=== PATIENT | female | born 1990 | race Two or more races ===

== ENCOUNTER → 2018-04-28 | Outpatient (CLI) | payer SELFPAY ==
--- NOTE | 2018-04-28 13:27 | RADIOLOGY REPORT (SQ) ---
EXAM DESCRIPTION: U/S [id number] TRNABD 1GES W/ODOP COMPLETED DATE/TIME: 04/28/2018 1:17 pm REASON FOR STUDY: ENCOUNTER FOR SUPERVISION OF OTHER NORMAL PREGANCY, FIRST TRIMESTER Z34.01 ENCNT R FOR SUPRVSN OF NORMAL FIRST PREG, FIRST TRIMES COMPARISON: None. TECHNIQUE: Transabdominal static and realtime grayscale images acquired of the pelvis. Additional se lected spectral and color Doppler images recorded. All images stored on PACs. [facility]: Not available. CLINICAL DATES: LMP 02/25/2018. 8 weeks 6 days. LIMITATIONS: None. FINDINGS: FETUS: Single Living intrauterine . ULTRASOUND EGA: 8 weeks 3 days. ULTRASOUND BEV: 12/05/2018 EFW: Not applicable less than 20 weeks. CRL: 1.9 cm. FHR: 173 beats per minute. SURVEY: Too early to assess. AMNIOTIC FLUID: Adequate amount. PLACENTA: Not yet developed due to early gestation. SUBCHORIONIC BLEED: No SIZE OF BLEED: Not applicable. UTERUS: No masses. No anomalies. CERVICAL LENGTH: 2.1 cm. Closed. RIGHT ADNEXA: Normal ovary with normal vascular flow. 2.1 x 2 x 1.9 cm. No adnexal free fluid. No adnexal masses. LEFT ADNEXA: Normal ovary with normal vascular flow. 2.1 x 1.3 x 1.3 cm. No adnexal free fluid. No adnexal masses. FREE FLUID: None. OTHER: No other significant finding. IMPRESSION: LIVING INTRAUTERINE . EGA 8 weeks 3 days. Trimester of : First - 0 to 13 weeks. TECHNICAL DOCUMENTATION: JOB ID: [id number]- All Rights Reserved rev Reading location - IP/workstation name: [email or web address]
== END ==
LOC: RAD 12:54
PROVIDERS: ATTEND Nurse Practitioner
DX: Z34.01 Encounter for supervision of normal first pregnancy, first trimester (principal)
CPT/HCPCS: 76801

== ENCOUNTER 2018-06-03 01:06 | Emergency (ER) | payer SELFPAY ==
[2018-06-03 01:28] VITALS: BP 112/61
== END 2018-06-03 02:06 | disposition left against medical advice (07) ==
LOC: ER 01:06
DX: Z53.21 Procedure and treatment not carried out due to patient leaving prior to being seen by health care provider (principal)

== ENCOUNTER → 2018-07-14 | Outpatient (CLI) | payer SELFPAY ==
--- NOTE | 2018-07-14 14:50 | RADIOLOGY REPORT (SQ) ---
EXAM DESCRIPTION: U/S OB 14+ TRNABD 1GES W/O DOP COMPLETED DATE/TIME: 07/14/2018 1:50 pm REASON FOR STUDY: Z34.02 ENCNTR FOR SUPRVSN OF NORMAL FIRST PREG, SECOND TRIMESTER Z34.02 ENCNTR FO R SUPRVSN OF NORMAL FIRST PREG, SECOND TRIME COMPARISON: 09/26/2017 TECHNIQUE: Static and Dynamic grayscale imaging performed of gravid uterus using transabdominal appr oach. Additional selected color Doppler and spectral images recorded. All stored on PACS. LIMITATIONS: None. FINDINGS: FETUSES SEEN:1 EGA: 19 weeks 5 days Calculated using BPD,FL,HC,AC documented on images. No discrepancy with clinica l dates. BEV: 12/03/2018 EFW: 301 +/-45 grams PERCENTILE: Not applicable. Fetus less than or equal to 20 weeks gestation. CHIQUITA: 6.1 PLACENTA: Anterior grade 1 PRESENTATION: Breech ANATOMY: HEART RATE: 152 beats per minute. FOUR CHAMBER HEART: Visualized. THREE VESSEL CORD: Yes. CORD INSERTION: Visualized. KIDNEYS AND BLADDER: Visualized. Appear normal. STOMACH: Visualized. Appears normal. SPINE: Normal as visualized. BRAIN AND LATERAL VENTRICLES: Visualized. Appear normal. OTHER: No other significant finding. MATERNAL ADNEXA: Maternal ovaries not visualized. CERVICAL LENGTH: 3.7 cm. Closed. OTHER: No other significant finding. IMPRESSION: LIVING INTRAUTERINE . ESTIMATED GESTATIONAL AGE 19 weeks 5 days. NO VISUALIZED ANOMALIES. Trimester of : Second trimester - 13 weeks 1 day to 27 weeks 6 days. TECHNICAL DOCUMENTATION: JOB ID: [id number] [employer]- All Rights Reserved Reading location - IP/workstation name: [email or web address]
== END ==
LOC: RAD 12:39
PROVIDERS: ATTEND Midwife
DX: Z34.02 Encounter for supervision of normal first pregnancy, second trimester (principal)
CPT/HCPCS: 76805

== ENCOUNTER → 2018-09-08 | Outpatient (CLI) | payer SELFPAY ==
[2018-09-08 17:10] LABS: ALANINE AMINOTRANSFERASE 34 U/L (9-52); ALBUMIN 3.8 g/dL (3.5-5.0); ALKALINE PHOSPHATASE 66 U/L (38-126); ASPARTATE AMINO TRANSFERASE 25 U/L (14-36); BILIRUBIN,DIRECT 0.1 mg/dL (0.0-0.4); BILIRUBIN,TOTAL 0.3 mg/dL (0.2-1.3); TOTAL PROTEIN 6.9 g/dL (6.3-8.2)
== END ==
LOC: OCH 16:28
PROVIDERS: ATTEND Midwife
DX: O98.419 Viral hepatitis complicating pregnancy, unspecified trimester (principal); B19.10 Unspecified viral hepatitis B without hepatic coma; Z3A.00 Weeks of gestation of pregnancy not specified
CPT/HCPCS: 36415; 80076

== ENCOUNTER 2018-12-11 09:58 | Outpatient (CLI) | payer SELFPAY ==
[2018-12-11 10:44] LABS: APPEARANCE,URINE CLEAR; BILIRUBIN,URINE NEGATIVE (NEGATIVE); COLOR,URINE YELLOW; GLUCOSE, URINE NEGATIVE (NEGATIVE); KETONES,URINE NEGATIVE (NEGATIVE); LEUKOCYTE ESTERASE,URINE NEGATIVE (NEGATIVE); NITRITE,URINE NEGATIVE (NEGATIVE); PROTEIN,URINE NEGATIVE (NEGATIVE); URINE SPECIFIC GRAVITY 1.003; UROBILINOGEN,URINE NEGATIVE mg/dL (<2.0)
[2018-12-11 10:58] LABS: URINE AMPHETAMINES SCREEN NEGATIVE; URINE BARBITURATES SCREEN NEGATIVE; URINE BENZODIAZEPINES SCREEN NEGATIVE; URINE COCAINE SCREEN NEGATIVE; URINE MARIJUANA (THC) SCREEN NEGATIVE; URINE METHADONE SCREEN NEGATIVE; URINE PHENCYCLIDINE SCREEN NEGATIVE
--- NOTE | 2018-12-11 13:00 | Non Stress Test Report ---
Non Stress Test Datetime Report Generated by CPN: 12/11/2018 13:00 DEMOGRAPHIC EGA NST: 41.2 INDICATION Indication for Study: Other Indication for Study (NST) Other: lc MONITORING Monitor Explained: Monitor Explained; Test Explained; Patient Verbalized Understanding Time on Monitor: 12/11/2018 10:55 Time off Monitor: 12/11/2018 12:45 NST Duration: 110 NST INTERVENTIONS NST Interventions: Reposition Patient Physician Notified NST: Dr Galaviz BABY A: [id number] BABY A Movement : Present Contraction Frequency : rare FHR Baseline : 145 Accelerations : 15X15 Decelerations : None Variability : Moderate 6-25bpm NST Review: Meets Criteria for Reactive NST NST Review and Verified By : B Baidy RN NST Results: Reactive NST REPORT Report Trigger: Send Report
== END 2018-12-11 13:02 | disposition home or self-care (01) ==
LOC: LC 09:58
PROVIDERS: ATTEND Obstetrics & Gynecology
DX: O36.8330 Maternal care for abnormalities of the fetal heart rate or rhythm, third trimester, not applicable or unspecified (principal); Z3A.41 41 weeks gestation of pregnancy
CPT/HCPCS: 80307; 81005

== ENCOUNTER 2018-12-14 02:59 | Inpatient (IN) | payer SELFPAY ==
[2018-12-14] MEDS ORDERED: OXYTOCIN/NORMAL SALINE 20 UNIT/1,000 ML RTUINJ IV PRN ×2 (03:29→22:45)
[2018-12-14] MEDS ORDERED: DINOPROSTONE 10 MG VAGINAL INSERT.SR PV PRN (03:29)
[2018-12-14] MEDS ORDERED: PENICILLIN G-K 5 MILLION UNIT VIAL IV ONE (03:36)
[2018-12-14 03:43] LABS: ABSOLUTE BASOPHILS # (AUTO) 0.1 10^3/uL (0.0-0.2); ABSOLUTE EOSINOPHILS # (AUTO) 0.3 10^3/uL (0.0-0.6); ABSOLUTE LYMPHOCYTES (AUTO) 1.8 10^3/uL (0.5-4.7); ABSOLUTE MONOCYTES (AUTO) 0.8 10^3/uL (0.1-1.4); ABSOLUTE NEUT (AUTO) 5.3 10^3/uL (1.7-8.2); BASOPHILS % (AUTO) 0.8 % (0-2); EOSINOPHILS % (AUTO) 3.3 % (0-6); HEMATOCRIT 39.8 % (36.0-47.0); HEMOGLOBIN 13.5 g/dL (12.0-15.5); LYMPHOCYTES % (AUTO) 22.4 % (13-45); MEAN CORPUSCULAR HEMOGLOBIN 30.2 pg (27.0-33.4); MEAN CORPUSCULAR HGB CONC 33.8 g/dL (32.0-36.0); MEAN CORPUSCULAR VOLUME 89 fl (80-97); MONOCYTES % (AUTO) 9.7 % (3-13); PLATELET COUNT 234 10^3/uL (150-450); RED BLOOD COUNT 4.47 10^6/uL (3.72-5.28); RED CELL DISTRIBUTION WIDTH 13.9 % (11.5-14.0); SEGMENTED NEUTROPHILS % (AUTO) 63.8 % (42-78); TOTAL CELLS COUNTED % (AUTO) 100 %; WHITE BLOOD COUNT 8.2 10^3/uL (4.0-10.5)
[2018-12-14 03:58] LABS: APPEARANCE,URINE SLIGHTLY-CLOUDY; BILIRUBIN,URINE NEGATIVE (NEGATIVE); COLOR,URINE YELLOW; GLUCOSE, URINE NEGATIVE (NEGATIVE); KETONES,URINE NEGATIVE (NEGATIVE); LEUKOCYTE ESTERASE,URINE TRACE (NEGATIVE); NITRITE,URINE NEGATIVE (NEGATIVE); PROTEIN,URINE NEGATIVE (NEGATIVE); URINE SPECIFIC GRAVITY 1.018; UROBILINOGEN,URINE NEGATIVE mg/dL (<2.0)
[2018-12-14] MEDS ORDERED: RINGERS SOLUTION,LACTATED 300 ML IV ONE (04:00)
[2018-12-14 04:16] LABS: URINE AMPHETAMINES SCREEN NEGATIVE; URINE BARBITURATES SCREEN NEGATIVE; URINE BENZODIAZEPINES SCREEN NEGATIVE; URINE COCAINE SCREEN NEGATIVE; URINE MARIJUANA (THC) SCREEN NEGATIVE; URINE METHADONE SCREEN NEGATIVE; URINE PHENCYCLIDINE SCREEN NEGATIVE
[2018-12-14] MEDS ORDERED: DINOPROSTONE 10 MG VAGINAL INSERT.SR ONE (04:26)
[2018-12-14] MEDS: RINGERS SOLUTION,LACTATED 1,000 ML IV PRN ×2 (04:28→11:27)
[2018-12-14] MEDS ORDERED: OXYTOCIN 10 UNIT/ML VIAL ONE (07:38)
[2018-12-14] MEDS ORDERED: MISOPROSTOL 0.2 MG TABLET ONE (07:39)
[2018-12-14] MEDS ORDERED: LIDOCAINE 1% INJ-PF (10 MG/ML) 30 ML SDV ONE (07:39)
[2018-12-14] MEDS ORDERED: OXYTOCIN/NORMAL SALINE 20 UNIT/1,000 ML RTUINJ ONE (07:39)
--- NOTE | 2018-12-14 08:51 | Admission Physical ---
Datetime Report Generated by CPN: 12/14/2018 08:50 CURRENT ADMISSION Hx Assessment: The History has been Reviewed and is Current Chief Complaint: Scheduled Induction of Labor Indication for Induction: Post Dates Admit Impression : Postterm, Intrauterine ; No Active Labor; Ruptured Membranes; Induction of Labor Admit Plan: Admit to Unit; Initiate Labor Augmentation Protocol ALLERGIES Medication Allergies: No Medication Allergies: No Known Drug Allergies (12/14/2018) Latex: No Latex Allergies Food Allergies: no Environmental Allergies: no OBSTETRICAL HISTORY EDC: 12/02/2018 00:00 : 1 Para: 0 Term: 0 : 0 SAB: 0 IAB: 0 Livin Gestational Diabetes: No Rh Sensitization: No Incompetent Cervix: No MARINO: No Infertility: No ART Treatment: No Uterine Anomaly: No IUGR: No Hx Previous C/S: No Macrosomia: No Hx Loss/Stillborn: No PIH: No Hx : No Placenta Previa/Abruption: No Depression/PP Depression: No PTL/PROM: No Post Hemorrhage: No Current Procedures: Ultrasound; NST Obstetrical History Comments: G1-current SEE RECORDS Alcohol: No Marijuana : No Cocaine: No Other Illicit Drugs: No Cigarettes: Never Smoker. 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 Surgery: No Heart Disease: No Hosp/Surgery: No Autoimmune Disorder: No Anesthetic Complications: No Kidney Disease: No Abnormal Pap Smear: No Neuro/Epilepsy: No Psychiatric Disorders: No Other Medical Diseases: No Hepatitis/Liver Disease: Yes Significant Family History: No Varicosities/Phlebitis: No Trauma/Violence : No Thyroid Dysfunction: No Medical History Comments: 09/09/18 reactive Hep B lab from health department INFECTIOUS HISTORY Gonorrhea: No Genital Herpes: No Chlamydia: No Tuberculosis: No Syphilis: No Hepatitis: No HIV/AIDS Exposure: No Rash or Viral Illness: No HPV: No PHYSICAL EXAM General: Normal HEENT: Normal Neurologic: Normal Thyroid: Deferred Heart: Normal Lungs: Normal Breast: Deferred Back: Normal Abdomen: Normal Genitourinary Exam: Normal Extremities: Normal DTRs: Normal Pelvic Type: Adequate Physical Exam Comments: + GBS in urine + Hep B, confirmed surface Ag, IGM = non reactive A+ + Chlamydia 04-28-18, AKUA, 06-25-18 = Neg AFP = neg Sono 04-28-18 =8+6, EDC 12-05-18 FETUS A EGA: 41.5 Monitoring: External US FHR- Baseline: 130 Variability: Moderate 6-25bpm Accelerations: 15X15 Decelerations: None Presentation: Oblique Admit Comment: Admitted to LD for IOL for post dates, care at [facility], seen in our office yesterday@ 42 weeks, + Hep B, cervidil, anticipate , [facility] at , [facility], Cat 1 strip PLANS FOR LABOR AND DELIVERY Labor and Delivery: None Pain Management: None Feeding Preference: Breast Benefit of Breast Feed Discussed: Yes Circumcision: N/A INFORMED CONSENT Assignment: Soni Vega MD Signature: with User ID: Jed : with User ID: Jed
[2018-12-14] MEDS ORDERED: PENICILLIN G-K 5 MILLION UNIT VIAL ONE (19:00)
[2018-12-14] MEDS ORDERED: ZOLPIDEM TARTRATE 5 MG TABLET PO PRN (22:45)
[2018-12-14] MEDS ORDERED: PROMETHAZINE HCL 25 MG SUPP.RECT PR PRN (22:45)
[2018-12-14] MEDS ORDERED: MEASLES,MUMPS&RUBELLA VACC/PF 0.5 ML VIAL SUBCUT PRN (22:45)
[2018-12-14] MEDS ORDERED: DIPH/PERTUSS(ACELL)/TETANUS VAC/PF 0.5 ML SYR (>=10YO) IM PRN (22:45)
[2018-12-14] MEDS ORDERED: GLYCERIN/WITCH HAZEL LEAF 1 EACH MED..WIPE TP PRN (22:45)
[2018-12-14] MEDS ORDERED: MAGNESIUM HYDROXIDE SUSP 30 ML UDCUP PO PRN (22:45)
[2018-12-14] MEDS ORDERED: DIBUCAINE 1% OINTMENT 56 GM TP PRN (22:45)
[2018-12-14] MEDS ORDERED: PROMETHAZINE HCL 25 MG TABLET PO PRN (22:45)
[2018-12-14] MEDS ORDERED: DIPHENHYDRAMINE HCL 25 MG CAPSULE PO PRN (22:45)
[2018-12-14] MEDS ORDERED: ACETAMINOPHEN WITH CODEINE #3 TABLET PO PRN ×2 (22:45)
[2018-12-14] MEDS ORDERED: BENZOCAINE/MENTHOL AEROSOL SPRAY 56 ML TOP PRN (22:45)
[2018-12-14] MEDS ORDERED: PROMETHAZINE HCL INJ 25 MG/1 ML VIAL IV PRN (22:45)
[2018-12-14] MEDS ORDERED: NA PHOS,M-B/NA PHOS,DI-BA (ADULT) 133 ML ENEMA PR PRN (22:45)
[2018-12-14] MEDS ORDERED: ACETAMINOPHEN 650 MG SUPP.RECT PR PRN (22:45)
[2018-12-14] MEDS ORDERED: PSEUDOEPHEDRINE HCL 30 MG TABLET PO PRN (22:45)
--- NOTE | 2018-12-15 00:55 | Delivery Summary ---
Del Sum A-C Datetime Report Generated by CPN: 12/15/2018 00:54 DELIVERY PERSONNEL DELIVERY PERSONNEL: [id number] Delivery Doctor:: Soni Vega MD Labor and Delivery Nurse:: Edna Patel RNbehavior specialist Nurse:: Aisha Nobles RN Implant Polisher/JAVA ANDROID DEVELOPER: Migdalia Ross, ST MATERNAL INFORMATION Delivery Anesthesia: None Medications After Delivery: Pitocin Bolus-Please Comment Meds After Delivery Comment: pitocin 20 units in 1000 ml NSS Delivery QBL: 150 Maternal Complications: None LABOR SUMMARY EDC: 12/02/2018 00:00 No. Babies in Womb: 1 Attempted: No Labor Anesthesia: None LABOR INFORMATION Reason for Induction: Post Dates Complete Dilatation: 12/14/2018 21:56 Cervical Ripening Agents: Cervidil Oxytocin: Induction Group B Beta Strep: positive Antibiotics # of Doses: 1 Antibiotics Time of Last Dose: 1905 Name of Antibiotic Given: penicillin Steroids Given: None Reason Steroids Not Administered: Not Applicable MEMBRANES Membranes Rupture Method: Artificial Rupture of Membranes: 12/15/2018 22:40 Length of Rupture (hr): -23.42 Amniotic Fluid Color: Moderate Meconium Amniotic Fluid Amount: Small Amniotic Fluid Odor: Normal STAGES OF LABOR Stage 2 hr: 1 Stage 2 min: 19 Stage 3 hr: 24 Stage 3 min: 7 VAGINAL DELIVERY Episiotomy: None Laceration #1: Perineal Laceration Extension #1: Second Degree Laceration #2: None Laceration Extension #2: N/A Laceration #3: None Laceration Extension #3: N/A Laceration Repair: Yes Laceration Repair Note: perineal laceration repaired with 3-0 chromic suture in usual fashion. Anal sphincter is intact. Sponge Count Correct: N/A; Vaginal Sweep Performed Sharps Count Correct: N/A BABY A INFORMATION Delivery Date/Time: 12/14/2018 23:15 Method of Delivery: Vaginal Born in Route : No : N/A Forceps: N/A Vacuum Extraction: N/A Shoulder Dystocia : No PRESENTATION/POSITION BABY A Presentation: Cephalic Cephalic Presentation: Vertex Vertex Position: occiput anterior Breech Presentation: N/A PLACENTA INFORMATION BABY A Placenta Delivery Time : 12/15/2018 23:22 Placenta Method of Delivery: Spontaneous Placenta Status: Delivered SCORES BABY A Heart Rate 1 min: >100 bpm Resp Effort 1 min: Good Cry Reflex Irritability 1 min: Cough or Sneeze or Pulls Away Muscle Tone 1 min: Active Motion Color 1 min: Blue/Pale Resuscitation Effort 1 min: Tactile Stimulation SCORE 1 MIN: 8 Heart Rate 5 min: >100 bpm Resp Effort 5 min: Good Cry Reflex Irritability 5 min: Cough or Sneeze or Pulls Away Muscle Tone 5 min: Active Motion Color 5 min: Body [place], Extremities Blue Resuscitation Effort 5 min: Tactile Stimulation SCORE 5 MIN: 9 INFORMATION BABY A Gestational Age at Delivery: 41.5 Gestational Status: Late Term- 41- 41.6 Weeks Infant Outcome : Liveborn Infant Condition : Stable Sex: Female IDENTIFICATION BABY A Verification Date/Time: 12/14/2018 23:28 ID Band Number: [id number] Mother's Name Verified: Yes RN Verifying : Chalman, A. 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 Cord Vessels: 3 Nuchal Cord : N/A Cord Blood Taken: Yes-For Storage (Mom's Blood type +) Infant Suction: Mouth; Nose ASSESSMENT BABY A Infant Complications: None Physical Findings at Delivery: Caput Succedaneum; Molding of the Head Respirations: Appears Normal Skin to Skin: Yes [place]head Hooper/ALS Called : No Transferred To: [facility] BABY B INFORMATION : N/A
[2018-12-15] MEDS: FAMOTIDINE 20 MG TABLET PO SCH ×3 (05:25→22:16)
[2018-12-15] MEDS: IBUPROFEN 800 MG TABLET PO SCH ×3 (05:26→22:16)
[2018-12-15 07:27] LABS: HEMATOCRIT 37.1 % (36.0-47.0); HEMOGLOBIN 12.5 g/dL (12.0-15.5); MEAN CORPUSCULAR HEMOGLOBIN 30.3 pg (27.0-33.4); MEAN CORPUSCULAR HGB CONC 33.6 g/dL (32.0-36.0); MEAN CORPUSCULAR VOLUME 90 fl (80-97); PLATELET COUNT 214 10^3/uL (150-450); RED BLOOD COUNT 4.11 10^6/uL (3.72-5.28); RED CELL DISTRIBUTION WIDTH 14.3 % (11.5-14.0); WHITE BLOOD COUNT 16.1 10^3/uL (4.0-10.5)
[2018-12-15] MEDS: FERROUS SULFATE 325 MG TABLET PO SCH ×2 (10:02→18:38)
[2018-12-15] MEDS: DOCUSATE SODIUM 100 MG CAPSULE PO SCH ×2 (10:02→18:38)
[2018-12-15] MEDS: SENNOSIDES/DOCUSATE 8.6-50 MG 1 EACH TABLET PO SCH (10:02)
[2018-12-15] MEDS: PRENATAL VITAMIN W DHA CAPSULE PO SCH (10:02)
--- NOTE | 2018-12-15 16:59 | PDOC PROGRESS REPORT ---
Subjective-OB Progress Note for:: 12/15/18 Subjective: Pt doing well. She reports light bleeding, regular diet and voiding without difficulty. Physical Exam (OB) Vital Signs: Temp Pulse Resp BP Pulse Ox 98.1 F 86 18 109/72 100 12/15/18 08:10 12/15/18 08:10 12/15/18 08:10 12/15/18 08:10 12/15/18 08:10 Intake & Output 12/14/18 12/15/18 12/16/18 06:59 06:59 06:59 Intake Total 873 Balance 873 Weight 85.7 kg - PIH/Pre-Eclampsia Clonus: Negative Headache: Absent Epigastric Pain: No Visual Changes: No - Lochia Lochia Amount: Scant < 10 ml Lochia Color: Rubra/Red - Abdomen Description: Tender, Soft, Round Hernia Present: No Fundal Description: Firm, Midline Fundal Height: u/u - u/2 Objective-Diagnostic Laboratory: 12/15/18 06:36 12/15/18 06:36 WBC 16.1 H RBC 4.11 Hgb 12.5 Hct 37.1 MCV 90 MCH 30.3 MCHC 33.6 RDW 14.3 H Plt Count 214 Assessment and Plan(PN) - Assessment and Plan (1) (spontaneous vaginal delivery) Is this a current diagnosis for this admission?: Yes (2) Obstetric vaginal laceration with second degree perineal laceration Is this a current diagnosis for this admission?: Yes - Time Spent with Patient Time with patient: Less than 15 minutes Medications reviewed and adjusted accordingly: Yes - Disposition Anticipated Discharge: Home Within: within 24 hours
[2018-12-16] MEDS: IBUPROFEN 800 MG TABLET PO SCH ×2 (06:53→13:54)
[2018-12-16] MEDS: FERROUS SULFATE 325 MG TABLET PO SCH ×2 (09:11→17:28)
[2018-12-16] MEDS: PRENATAL VITAMIN W DHA CAPSULE PO SCH (09:11)
[2018-12-16] MEDS: SENNOSIDES/DOCUSATE 8.6-50 MG 1 EACH TABLET PO SCH (09:11)
[2018-12-16] MEDS: FAMOTIDINE 20 MG TABLET PO SCH (09:11)
[2018-12-16] MEDS: DOCUSATE SODIUM 100 MG CAPSULE PO SCH ×2 (09:11→17:28)
[2018-12-16 09:57] VITALS: BP 125/68
--- NOTE | 2018-12-16 10:57 | PDOC PROGRESS REPORT ---
Subjective-OB Progress Note for:: 12/16/18 Subjective: Ready for discharge. Physical Exam (OB) Vital Signs: Temp Pulse Resp BP Pulse Ox 97.8 F 72 12 125/68 98 12/16/18 10:23 12/16/18 10:23 12/16/18 10:23 12/16/18 08:21 12/16/18 10:23 Intake & Output 12/15/18 12/16/18 12/17/18 06:59 06:59 06:59 Intake Total 873 Balance 873 - PIH/Pre-Eclampsia Clonus: Negative Headache: Absent Epigastric Pain: No Visual Changes: No - Lochia Lochia Amount: Scant < 10 ml Lochia Color: Rubra/Red - Abdomen Description: Soft, Flat Hernia Present: No Bowel Sounds: Normoactive Flatus Presence: Present Stool: No Fundal Description: Firm, Midline Fundal Height: u/u - u/2 Objective-Diagnostic Laboratory: 12/15/18 06:36 Assessment and Plan(PN) - Time Spent with Patient Medications reviewed and adjusted accordingly: Yes - Disposition Anticipated Discharge: Home
--- NOTE | 2018-12-16 11:05 | PDOC DISCHARGE SUMMARY ---
Final Diagnosis Discharge Date: 12/16/18 - Final Diagnosis (1) Obstetric vaginal laceration with second degree perineal laceration Is this a current diagnosis for this admission?: Yes (2) (spontaneous vaginal delivery) Is this a current diagnosis for this admission?: Yes Discharge Data - Discharge Medication Home Medications: Vit,Calc76/Iron/Folic [Prenatabs Rx Tablet] 1 tab PO DAILY 12/11/18 Gestational Age: 41.5 wks Reason(s) for Admission: Induction of Labor Procedures: Ultrasound Intrapartum Procedure(s): Spontaneous Vaginal Delivery Complication(s): Laceration-Perineal Laceration-Degree: 2nd - Data Baby 1 Female at 1 minute: 8 at 5 minutes: 9 Weight: 3.345 kg Home with Mother: Yes Complications: No - Diagnosis Test Laboratory: Temp Pulse Resp BP Pulse Ox 97.8 F 72 12 125/68 98 12/16/18 10:23 12/16/18 10:23 12/16/18 10:23 12/16/18 08:21 12/16/18 10:23 12/14/18 12/14/18 12/15/18 03:15 03:31 06:36 RBC 4.47 4.11 Hgb 13.5 12.5 Hct 39.8 37.1 Urine Opiates Screen NEGATIVE - Discharge information/Instructions Discharge Activity: Activity As Tolerated, Balance Activity w/Rest, Pelvic Rest, Slowly Increase Activity, No tub bath Discharge Diet: Regular Disposition: HOME, SELF-CARE Follow up with: [facility] in: 4, Weeks
== END 2018-12-16 20:50 | disposition home or self-care (01) | DRG 807 ==
LOC: LR 02:59 → 2S 12-15 01:54
PROVIDERS: ADMIT Obstetrics & Gynecology; ATTEND Obstetrics & Gynecology
PROC: 10E0XZZ Delivery of Products of Conception, External Approach (ICD-10-PCS; principal; 2018-12-14)
PROC: 0KQM0ZZ Repair Perineum Muscle, Open Approach (ICD-10-PCS; 2018-12-14)
DX: O48.0 Post-term pregnancy (principal); Z37.0 Single live birth; O70.1 Second degree perineal laceration during delivery; O99.824 Streptococcus B carrier state complicating childbirth; O77.0 Labor and delivery complicated by meconium in amniotic fluid; Z3A.41 41 weeks gestation of pregnancy
CPT/HCPCS: 36415; 80307; 81005; 85025; 85027; 86592; 86850; 86900; 86901; J2540; J2590; J3490

== ENCOUNTER 2019-03-22 10:40 | Inpatient (IN) | payer SELFPAY ==
[2019-03-22] MEDS ORDERED: DEXTROSE 5%-LACTATED RINGERS 1,000 ML IV PRN (11:19)
[2019-03-22] MEDS ORDERED: VANCOMYCIN HCL 0 MG in DEXTROSE 5%-WATER 250 ML IV NR (11:30)
[2019-03-22 12:40] LABS: ABSOLUTE BASOPHILS # (AUTO) 0.1 10^3/uL (0.0-0.2); ABSOLUTE EOSINOPHILS # (AUTO) 0.9 10^3/uL (0.0-0.6); ABSOLUTE LYMPHOCYTES (AUTO) 1.9 10^3/uL (0.5-4.7); ABSOLUTE MONOCYTES (AUTO) 1.1 10^3/uL (0.1-1.4); ABSOLUTE NEUT (AUTO) 6.8 10^3/uL (1.7-8.2); BASOPHILS % (AUTO) 0.9 % (0-2); EOSINOPHILS % (AUTO) 8.4 % (0-6); HEMATOCRIT 39.2 % (36.0-47.0); HEMOGLOBIN 13.2 g/dL (12.0-15.5); MEAN CORPUSCULAR HEMOGLOBIN 29.5 pg (27.0-33.4); MEAN CORPUSCULAR HGB CONC 33.8 g/dL (32.0-36.0); MEAN CORPUSCULAR VOLUME 87 fl (80-97); PLATELET COUNT 373 10^3/uL (150-450); RED BLOOD COUNT 4.48 10^6/uL (3.72-5.28); RED CELL DISTRIBUTION WIDTH 13.8 % (11.5-14.0); SEGMENTED NEUTROPHILS % (AUTO) 62.7 % (42-78); TOTAL CELLS COUNTED % (AUTO) 100 %; WHITE BLOOD COUNT 10.8 10^3/uL (4.0-10.5)
[2019-03-22 12:59] LABS: ANION GAP 12 (5-19); BLOOD UREA NITROGEN 17 mg/dL (7-20); CALCIUM 9.8 mg/dL (8.4-10.2); CARBON DIOXIDE 24 mmol/L (22-30); CHLORIDE 101 mmol/L (98-107); GLUCOSE 76 mg/dL (75-110); POTASSIUM 4.1 mmol/L (3.6-5.0)
[2019-03-22] MEDS: VANCOMYCIN HCL 1,000 MG in DEXTROSE 5%-WATER 250 ML IV SCH ×2 (15:04→21:34)
[2019-03-22] MEDS ORDERED: MIDAZOLAM 2 MG/2 ML INJ ONE (19:18)
[2019-03-22] MEDS ORDERED: LIDOCAINE 0.5% INJ-PF (5 MG/ML) 50 ML SDV ONE (19:18)
[2019-03-22] MEDS ORDERED: FENTANYL CITRATE INJ/PF 100 MCG/2 ML AMPUL ONE (19:18)
[2019-03-22] MEDS ORDERED: PROPOFOL INJ 200 MG/20 ML VIAL IV ONE (19:19)
[2019-03-22] MEDS ORDERED: OXYCODONE-ACETAMINOPHEN 5-325 MG TABLET PO PRN ×3 (19:51→20:32)
[2019-03-22] MEDS ORDERED: MORPHINE SULFATE 10 MG/ML INJ IV PRN (19:51)
[2019-03-22] MEDS ORDERED: PROMETHAZINE HCL INJ 25 MG/1 ML VIAL IV PRN ×2 (19:51)
[2019-03-22] MEDS ORDERED: DIPHENHYDRAMINE HCL 50 MG/ML VIAL IV PRN (19:51)
[2019-03-22] MEDS ORDERED: MEPERIDINE HCL/PF INJ 25 MG/1 ML DISP.SYRIN IV PRN (19:51)
[2019-03-22] MEDS ORDERED: ONDANSETRON HCL INJ/PF 4 MG/2 ML SDV IV PRN (19:51)
[2019-03-22] MEDS ORDERED: FENTANYL CITRATE INJ/PF 100 MCG/2 ML AMPUL IV PRN ×3 (19:51)
--- NOTE | 2019-03-22 20:36 | Operative Report ---
Operative Report DATE OF SURGERY: 03/22/19 PREOPERATIVE DIAGNOSIS: Abscess left breast POSTOPERATIVE DIAGNOSIS: Same OPERATION: Incision and drainage of abscess left breast SURGEON: BROOKS VICTOR ANESTHESIA: LMAC TISSUE REMOVED OR ALTERED: Pus COMPLICATIONS: None ESTIMATED BLOOD LOSS: 50 cc QUANTITATIVE BLOOD LOSS: 50 INTRAOPERATIVE FINDINGS: Large abscess. Drained about at least 150 ccc of yellowish purulent material PROCEDURE: Patient was placed in supine position and after adequate IV sedation the left breast was then prepped and draped in the usual sterile fashion. Appropriate timeout was then called. Next local anesthesia infiltrated over the fluctuant area on the left inferior periareolar area of the left breast. Next incision made around the periareolar area with a fluctuation was and purulent material extruded out. Specimen for C&S were obtained. The abscess cavity was then further probe and the incision further enlarged medially to a total distance of about 3 cm. About 100 tooth he did to 200 cc of pus was removed. The cavity was then pulse lavage with a liter of saline. Hemostasis on the subcu and breast tissue along the incision was then obtained with the use of the cautery. The cavity was then packed with the Kerlix soaked in half Betadine half saline solution. The patient has a 3-month-old child and she is presently breast- feeding and therefore there is good vascularity around the breast tissue. Part of the bleeding was controlled with the packing and almost the whole Kerlix was used. A 4 x 4 and ABD pads were very then placed over the operative site. Patient tolerated procedure well and brought to recovery room in satisfactory condition.
[2019-03-22] MEDS ORDERED: VANCOMYCIN HCL 1,000 MG in DEXTROSE 5%-WATER 250 ML IV SCH (22:00)
[2019-03-23] MEDS ORDERED: KETOROLAC TROMETHAMINE INJ/PF 30 MG/1 ML SDV IV SCH
[2019-03-23] MEDS: NORMAL SALINE 1000 ML 1,000 ML IV PRN ×2 (00:05→13:47)
[2019-03-23] MEDS: MORPHINE SULFATE 10 MG/ML INJ IV PRN (00:56)
[2019-03-23] MEDS ORDERED: DEXTROSE 50%-WATER 25 GM/50 ML DISP.SYRIN IV PRN ×2 (04:46)
[2019-03-23] MEDS ORDERED: GLUCAGON,HUMAN RECOMB 1 MG INJ SUBCUT PRN (04:46)
[2019-03-23] MEDS ORDERED: DEXTROSE 40% GEL 15 GM TUBE PO PRN ×2 (04:46)
[2019-03-23] MEDS: VANCOMYCIN HCL 1,000 MG in DEXTROSE 5%-WATER 250 ML IV SCH ×3 (06:40→22:11)
[2019-03-23 06:57] LABS: ABSOLUTE BASOPHILS # (AUTO) 0.1 10^3/uL (0.0-0.2); ABSOLUTE EOSINOPHILS # (AUTO) 0.8 10^3/uL (0.0-0.6); ABSOLUTE LYMPHOCYTES (AUTO) 1.8 10^3/uL (0.5-4.7); ABSOLUTE MONOCYTES (AUTO) 0.9 10^3/uL (0.1-1.4); ABSOLUTE NEUT (AUTO) 4.3 10^3/uL (1.7-8.2); BASOPHILS % (AUTO) 0.8 % (0-2); EOSINOPHILS % (AUTO) 10.2 % (0-6); HEMATOCRIT 35.7 % (36.0-47.0); HEMOGLOBIN 12.2 g/dL (12.0-15.5); MEAN CORPUSCULAR HGB CONC 34.3 g/dL (32.0-36.0); MEAN CORPUSCULAR VOLUME 87 fl (80-97); MONOCYTES % (AUTO) 11.2 % (3-13); PLATELET COUNT 318 10^3/uL (150-450); RED BLOOD COUNT 4.08 10^6/uL (3.72-5.28); RED CELL DISTRIBUTION WIDTH 13.6 % (11.5-14.0); SEGMENTED NEUTROPHILS % (AUTO) 54.8 % (42-78); TOTAL CELLS COUNTED % (AUTO) 100 %; WHITE BLOOD COUNT 7.9 10^3/uL (4.0-10.5)
--- NOTE | 2019-03-23 10:07 | PDOC PROGRESS REPORT ---
Subjective Progress Note for:: 03/23/19 Reason For Visit: LEFT BREAST ABSCESS MRSA Physical Exam Vital Signs: Temp Pulse Resp BP Pulse Ox 97.7 F 72 16 108/66 99 03/23/19 07:28 03/23/19 07:28 03/23/19 07:28 03/23/19 07:28 03/23/19 07:28 Intake & Output 03/22/19 03/23/19 03/24/19 06:59 06:59 06:59 Intake Total 2350 Output Total 1000 Balance 1350 Weight 70.8 kg General appearance: PRESENT: no acute distress, cooperative Head exam: PRESENT: atraumatic, normocephalic Eye exam: PRESENT: EOMI, PERRLA. ABSENT: scleral icterus Mouth exam: PRESENT: moist, neck supple Neck exam: ABSENT: meningismus, tenderness, thyromegaly, tracheal deviation Respiratory exam: PRESENT: clear to auscultation keyona, unlabored. ABSENT: chest wall tenderness, wheezes Cardiovascular exam: PRESENT: RRR Pulses: PRESENT: normal radial pulses GI/Abdominal exam: PRESENT: soft. ABSENT: tenderness Rectal exam: PRESENT: deferred Extremities exam: ABSENT: clubbing Musculoskeletal exam: ABSENT: deformity Neurological exam: PRESENT: alert, awake, oriented to person, oriented to place, oriented to time, oriented to situation, CN II-XII grossly intact. ABSENT: motor sensory deficit Psychiatric exam: ABSENT: agitated, anxious, depressed Focused psych exam: ABSENT: delusional Skin exam: PRESENT: other - Left breast with packing in place. No active bleeding. No significant purulence. Results Laboratory Results: 03/23/19 06:24 03/22/19 12:20 03/22/19 03/22/19 03/23/19 12:20 12:20 06:24 WBC 10.8 H 7.9 RBC 4.48 4.08 Hgb 13.2 12.2 Hct 39.2 35.7 L MCV 87 87 MCH 29.5 30.0 MCHC 33.8 34.3 RDW 13.8 13.6 Plt Count 373 318 Seg Neutrophils % 62.7 54.8 Sodium 136.8 L Potassium 4.1 Chloride 101 Carbon Dioxide 24 Anion Gap 12 BUN 17 Creatinine 0.70 Est GFR ( Amer) > 60 Glucose 76 Calcium 9.8 Assessment & Plan - Diagnosis (1) Breast abscess Is this a current diagnosis for this admission?: Yes - Time Time Spent with patient: Less than 15 minutes - Plan Summary Plan Summary: There is a 29-year-old female status post incision and drainage of a left breast abscess. The cavity is rather large, and there was a large amount of bleeding during the surgery. The packing was placed for hemostatic purposes. Today, the wound is without significant purulence or bleeding. I will leave the packing in place to maintain hemostasis. Plan for dressing changes tomorrow. Continue antibiotics.
[2019-03-24] MEDS: NORMAL SALINE 1000 ML 1,000 ML IV PRN ×3 (00:14→21:09)
[2019-03-24] MEDS: VANCOMYCIN HCL 1,000 MG in DEXTROSE 5%-WATER 250 ML IV SCH ×3 (05:55→21:09)
[2019-03-24] MEDS ORDERED: PROPOFOL INJ 200 MG/20 ML VIAL IV ONE (10:19)
[2019-03-24] MEDS ORDERED: FENTANYL CITRATE INJ/PF 100 MCG/2 ML AMPUL ONE (10:19)
[2019-03-24] MEDS ORDERED: MIDAZOLAM 2 MG/2 ML INJ ONE (10:19)
[2019-03-24] MEDS ORDERED: MEPERIDINE HCL/PF INJ 25 MG/1 ML DISP.SYRIN IV PRN (10:53)
[2019-03-24] MEDS ORDERED: FENTANYL CITRATE INJ/PF 100 MCG/2 ML AMPUL IV PRN ×3 (10:53)
[2019-03-24] MEDS ORDERED: ONDANSETRON HCL INJ/PF 4 MG/2 ML SDV IV PRN (10:53)
[2019-03-24] MEDS ORDERED: DIPHENHYDRAMINE HCL 50 MG/ML VIAL IV PRN (10:53)
[2019-03-24] MEDS ORDERED: PROMETHAZINE HCL INJ 25 MG/1 ML VIAL IV PRN ×2 (10:53)
[2019-03-24] MEDS ORDERED: MORPHINE SULFATE 10 MG/ML INJ IV PRN (10:53)
[2019-03-24] MEDS ORDERED: BUPIVACAINE HCL 0.5 % INJ/PF 30 ML SDV INJ ONE (11:01)
[2019-03-24] MEDS ORDERED: ACETAMINOPHEN 1,000 MG/100 ML RTUPB IV ONE (11:24)
[2019-03-24] MEDS ORDERED: BUPIVACAINE HCL 0.5 % INJ/PF 30 ML SDV ONE (11:29)
--- NOTE | 2019-03-24 12:36 | Operative Report ---
Operative Report DATE OF SURGERY: 03/24/19 PREOPERATIVE DIAGNOSIS: Abscess left Breast Post I&D POSTOPERATIVE DIAGNOSIS: Same OPERATION: Changing of packing from left breast SURGEON: BROOKS VICTOR ANESTHESIA: LMAC TISSUE REMOVED OR ALTERED: None COMPLICATIONS: None ESTIMATED BLOOD LOSS: 5 cc QUANTITATIVE BLOOD LOSS: 5 INTRAOPERATIVE FINDINGS: Left breast I&D site little bit smaller. There is a small amount of bleeding and starting granulation tissue. PROCEDURE: Patient was placed supine on the stretcher and after IV sedation the left breast was then prepped and draped in the usual sterile fashion. Appropriate timeout was then called. Next the packing was initially removed prior to prepping and the cavity was then inspected and noted to have no significant drainage. The I&D opening site measuring about 3 cm long was then injected with about 10 cc of half percent Marcaine. The cavity was irrigated with saline solution and dried up with sponge. There is some oozing on the surface but no real active bleeding. A new half inch iodoform gauze using the whole bottle was then used to pack the cavity in the left breast which was actually quite smaller than the original size. Sterile 4 x 4 and ABD pad were placed over the wound. Patient tolerated procedure well and brought to recovery room in satisfactory condition.
[2019-03-25] MEDS: NORMAL SALINE 1000 ML 1,000 ML IV PRN (04:48)
[2019-03-25] MEDS: VANCOMYCIN HCL 1,000 MG in DEXTROSE 5%-WATER 250 ML IV SCH (05:25)
[2019-03-25] MEDS: MORPHINE SULFATE 10 MG/ML INJ IV PRN (07:56)
--- NOTE | 2019-03-25 08:41 | PDOC DISCHARGE SUMMARY ---
General - Admit/Disc Date/PCP Admission Date/Primary Care Provider: 03/22/19 10:40 MARY LOU CHÁVEZ MD Discharge Date: 03/25/19 - Discharge Diagnosis Final Diagnosis: Abscess left breast - Assessment Summary: 29-year-old female breast-feeding 3-month-old daughter noted to have abscess of the left breast about 4 weeks ago. Abscess came back and drained in the OR by Dr. Schuster on 03/22/2019. She was placed on IV vancomycin. The packing was replaced in the OR on 03/24/[address] Schuster. The culture showed staph aureus sensitive to clindamycin. The left breast packing was then changed on 03/25/2019 and discharged on the same date. Arrangements were made for visiting nurse to change the packing every other day for the next 2weeks and given a prescription for clindamycin 300 mg p.o. 4 times a day for the next 7days. A green promotions specialist will see her prior to discharge - Additional Information Resuscitation Status: Full Code Discharge Activity: Activity As Tolerated, Balance Activity w/Rest Referrals: MARY LOU CHÁVEZ MD [Primary Care Provider] - 04/05/19 3:15 pm Home Medications: Vit,Calc76/Iron/Folic [Prenatabs Rx Tablet] 1 tab PO DAILY 12/11/18 History of Present Illiness History of Present Illness: FANNY MEDINA is a 29 year old female admitted on 1119 for left breast abscess and underwent incision and drainage of left breast abscess on 03/22/[address] Schuster. Hospital Course Hospital Course: Underwent incision and drainage of abscess of left breast on 03/22/[address] Schuster. Subsequent removal of packing done on 03/24/[address] Manzano. She was continued on IV vancomycin. Packing on the left breast changed on 03/25/[address] Schuster and discharge improved on p.o. clindamycin and to be followed up by the visiting nurse for wound packing changes. Physical Exam Vital Signs: Temp Pulse Resp BP Pulse Ox 97.8 F 71 14 112/65 100 03/25/19 08:09 03/25/19 08:09 03/25/19 08:09 03/25/19 08:09 03/25/19 08:09 Intake & Output 11/03/25/19 03/26/19 06:59 06:59 06:59 Intake Total 2750 3610 Output Total 1800 Balance 2750 1810 Weight 73 kg 74.7 kg Exam: On admission patient had marketed swelling and tenderness on the left breast Results Laboratory Results: WBC 7.9 10^3/uL (4.0-10.5) 03/23/19 06:24 RBC 4.08 10^6/uL (3.72-5.28) 03/23/19 06:24 Hgb 12.2 g/dL (12.0-15.5) 03/23/19 06:24 Hct 35.7 % (36.0-47.0) L 03/23/19 06:24 MCV 87 fl (80-97) 03/23/19 06:24 MCH 30.0 pg (27.0-33.4) 03/23/19 06:24 MCHC 34.3 g/dL (32.0-36.0) 03/23/19 06:24 RDW 13.6 % (11.5-14.0) 03/23/19 06:24 Plt Count 318 10^3/uL (150-450) 03/23/19 06:24 Lymph % (Auto) 23.0 % (13-45) 03/23/19 06:24 [place] % (Auto) 11.2 % (3-13) 03/23/19 06:24 Eos % (Auto) 10.2 % (0-6) H 03/23/19 06:24 Baso % (Auto) 0.8 % (0-2) 03/23/19 06:24 Absolute Neuts (auto) 4.3 10^3/uL (1.7-8.2) 03/23/19 06:24 Absolute Lymphs (auto) 1.8 10^3/uL (0.5-4.7) 03/23/19 06:24 Absolute Monos (auto) 0.9 10^3/uL (0.1-1.4) 03/23/19 06:24 Absolute Eos (auto) 0.8 10^3/uL (0.0-0.6) H 03/23/19 06:24 Absolute Basos (auto) 0.1 10^3/uL (0.0-0.2) 03/23/19 06:24 Seg Neutrophils % 54.8 % (42-78) 03/23/19 06:24 Sodium 136.8 mmol/L (137-145) L 03/22/19 12:20 Potassium 4.1 mmol/L (3.6-5.0) 03/22/19 12:20 Chloride 101 mmol/L (98-107) 03/22/19 12:20 Carbon Dioxide 24 mmol/L (22-30) 03/22/19 12:20 Anion Gap 12 (5-19) 03/22/19 12:20 BUN 17 mg/dL (7-20) 03/22/19 12:20 Creatinine 0.65 mg/dL (0.52-1.25) 03/23/19 13:36 Est GFR ( Amer) > 60 (>60) 03/23/19 13:36 Est GFR (MDRD) Non-Af > 60 (>60) 03/23/19 13:36 Glucose 76 mg/dL (75-110) 03/22/19 12:20 Calcium 9.8 mg/dL (8.4-10.2) 03/22/19 12:20 Urine HCG, Qual NEGATIVE (NEGATIVE) 03/22/19 18:28 Time Trough Drawn 1336 03/23/19 13:36 Vancomycin Trough 14.0 ug/mL (5.0-20.0) 03/23/19 13:36 Plan Plan of Treatment: I&D of the left breast done on 03/22/2019. Change of packing done on 03/24/2019. Time Spent: Less than 30 Minutes
[2019-03-25 09:22] VITALS: BP 112/62
== END 2019-03-25 11:00 | disposition home or self-care (01) | DRG 601 ==
LOC: 2N 10:40 → OBSVTOIN 10:40
PROVIDERS: ADMIT Surgery; ATTEND Surgery
PROC: 0H9U3ZZ Drainage of Left Breast, Percutaneous Approach (ICD-10-PCS; principal; 2019-03-22 18:30)
PROC: 2W04X6Z Change Pressure Dressing on Chest Wall (ICD-10-PCS; 2019-03-24)
DX: N61.1 Abscess of the breast and nipple (principal); B95.62 Methicillin resistant Staphylococcus aureus infection as the cause of diseases classified elsewhere
CPT/HCPCS: 36415; 400; 80048; 80202; 81025; 82565; 85025; 87070; 87075; 87077; 87186; 87205; J0131; J2250; J2270; J2704; J3010; J3370; J3490; J7030; J7060; J7121